=== PATIENT | male | born 1985 | race Caucasian/White ===

== ENCOUNTER 2017-09-13 07:40 | Emergency (ER) | payer OTHER ==
[2017-09-13] MEDS: HYDROCODONE/APAP (5/325) TAB PO (08:23)
[2017-09-13] MEDS: KETOROLAC 30 MG INJ IM (10:06)
== END 2017-09-13 10:29 | disposition home or self-care (01) ==
LOC: FTE 07:40
DX: M54.5 Low back pain (principal); R51 Headache
CPT/HCPCS: 70450; 72072; 72100; 72125; 96372; 99285-25

== ENCOUNTER 2018-10-15 12:10 | Emergency (ER) | payer SELFPAY, OTHER ==
[2018-10-15] MEDS: KETOROLAC 60 MG INJ IM (13:41)
== END 2018-10-15 14:40 | disposition home or self-care (01) ==
LOC: FTE 12:10
DX: S39.012A Strain of muscle, fascia and tendon of lower back, initial encounter (principal); S89.92XA Unspecified injury of left lower leg, initial encounter; W19.XXXA Unspecified fall, initial encounter; Y92.89 Other specified places as the place of occurrence of the external cause
CPT/HCPCS: 73562; 96372; 99284-25

== ENCOUNTER 2018-11-05 21:50 | Emergency (ER) | payer SELFPAY | END 2018-11-05 23:40 | disposition home or self-care (01) | LOC: FTE 23:40 | DX: R21 Rash and other nonspecific skin eruption (principal) | CPT/HCPCS: 99283 ==